=== PATIENT | female | born 1985 | race Caucasian/White ===

== ENCOUNTER 2017-11-01 10:26 | Inpatient (IN) | payer BC ==
[2017-11-01] MEDS ORDERED: IBUPROFEN 600 MG TAB PO PRN (11:12)
[2017-11-01] MEDS ORDERED: LR 1,000 ML IV PRN (11:12)
[2017-11-01] MEDS ORDERED: TERBUTALINE SULFATE 1 MG/ML VIAL IV PRN (11:12)
[2017-11-01] MEDS ORDERED: MISOPROSTOL 200 MCG TAB PR PRN (11:12)
[2017-11-01] MEDS ORDERED: OLIVE OIL 118 ML BTL MISC PRN (11:12)
[2017-11-01] MEDS ORDERED: OXYTOCIN/RINGERS LACTATE 1,000 ML IV PRN (11:12)
[2017-11-01] MEDS ORDERED: EPSOM SALT 454 GM TP PRN (11:12)
[2017-11-01] MEDS ORDERED: LIDOCAINE 1% 300 MG/30 ML SDV SC PRN (11:12)
[2017-11-01 11:41] LABS: PLATELET COUNT 184 10^3/uL (150-400)
[2017-11-01] MEDS ORDERED: BUPIVACAINE 0.25% 30 ML SDV ONE (11:56)
[2017-11-01] MEDS ORDERED: PHENYLEPHRINE HCL 100 MCG/ML SYR ONE (11:56)
[2017-11-01] MEDS ORDERED: fentaNYL 100 MCG/2 ML INJ ONE (11:57)
[2017-11-01] MEDS ORDERED: NARCOTIC DRIP BAG-TOTAL ALL TYPES IV PRN (11:59)
[2017-11-01] MEDS: fentaNYL 200 MCG, BUPIVACAINE 0.5% 20 ML in NS 100 ML EP SCH ×2 (12:17→19:55)
[2017-11-01] MEDS ORDERED: PHENYLEPHRINE HCL 100 MCG/ML SYR IVP PRN (12:52)
[2017-11-01] MEDS ORDERED: ONDANSETRON 4 MG/2 ML VIAL IVP PRN (12:52)
--- NOTE | 2017-11-01 12:57 | PREANESOB ---
Obstetric Pre-Anesthesia Info - General Info Proposed Procedure: Labor and delivery. : 1 Para: 0 DEE: 10/27/17 Gestational Age: 40 week(s) and 5 day(s) - Info Status: Postmature Monitors: External FHR Baseline (bpm): 130 FHR Pattern: Reassuring - Labor Status Cervical Dilation per last OB SVE: 6 Indications for Labor Analgesia: Pain Control Labor Epidural: Proposed Anesthesia ROS: Prior general anesthesia. Allergies/Adverse Reactions: Allergy/AdvReac Type Severity Reaction Status Date / Time No Known Allergies Allergy Unverified 11/01/17 10:45 Home Medications: Medication Instructions Recorded Vit 8-Phdj-Jadyi-Dha 1 each PO DAILY 11/01/17 [Elite Ob Dha Softgel] Visit Medications: Generic Name Dose Route Start Last Admin Trade Name Freq PRN Reason Stop Dose Admin Lactated Ringer's 1,000 mls @ 0 mls/hr 11/01/17 11:12 11/01/17 12:17 Lr IV 11/02/17 11:11 1,000 mls PRN PRN Administration SEE PROTOCOL CONDITIONS Protocol Per Protocol Oxytocin/Lactated Ringer's 1,000 mls @ 125 mls/hr 11/01/17 11:12 Pitocin 20 Units/Lr (Premix) IV PRN PRN Post bleeding Fentanyl 200 mcg/ Bupivacaine 100 mls @ mls/hr 11/01/17 11:59 11/01/17 12:17 HCl 20 ml/ Sodium Chloride EP 11/11/17 11:58 100 mls CONT CHLOE Administration As Directed Ibuprofen 600 mg 11/01/17 11:12 Motrin PO ONCE PRN post , pain Lidocaine HCl 300 mg 11/01/17 11:12 Lidocaine Hcl 1% SC 04/30/18 11:11 ONCE PRN episiotomy Magnesium Sulfate 454 gm 11/01/17 11:12 Epsom Salt TP 04/30/18 11:11 Q1H PRN perineal discomfort Miscellaneous Medication 1 ea 11/01/17 11:59 Narcotic Drip-Total All Types IV 04/30/18 11:58 PRN PRN Pyxis removal Misoprostol 800 - 1,000 mcg 11/01/17 11:12 Cytotec [place] ONCE PRN Vaginal Atony/Bleeding [place] Oil 118 ml 11/01/17 11:12 Sweet Oil MISC 04/30/18 11:11 ONCE PRN perineal massage Terbutaline Sulfate 0.25 mg 11/01/17 11:12 Brethine IV 04/30/18 11:11 ONCE PRN Tachysystole Discontinued Medications Generic Name Dose Route Start Last Admin Trade Name Rob PRN Reason Stop Dose Admin Bupivacaine HCl Confirm 11/01/17 11:56 Sensorcaine 0.25% Sdv Administered 11/01/17 11:57 Dose 30 ml .ROUTE .STK-MED ONE Fentanyl Confirm 11/01/17 11:57 Sublimaze Administered 11/01/17 11:58 Dose 100 mcg .ROUTE .STK-MED ONE Phenylephrine HCl Confirm 11/01/17 11:56 Neosynephrine Administered 11/01/17 11:57 Dose 1,000 mcg .ROUTE .STK-MED ONE - Anesthesia History Response to Local Anesthetics: Normal Anesthesia & Operative History: No Prior Problems Family Anesthesia History: Negative - Social History Substance Use/Abuse: Denies - Vital Signs Blood Pressure: 132/85 Heart Rate: 71 Respiratory Rate: 24 Height/Weight (Nursing): Height 166.37 cm Weight 96.162 kg - Focused Exam Neck exam: FROM Mallampati Score: Class 1 Mouth exam: normal dental/mouth exam Pulmonary: no respiratory distress Cardiovascular: regular rate and rhythym Labs: 11/01/17 11:30 Patient ABO/Rh O POSITIVE 11/01/17 11:30 - Plan Anesthetic Plan: CSE Consent Signed and on Chart: Yes Patient/Guardian Understands and Agrees to Plan: Yes Urgent/Emergent Case: Sean gloria completed preop but documented later for safe timely pt care
--- NOTE | 2017-11-01 12:57 | POSTANESTH ---
Post Anesthetic Evaluation Cardiovascular Status: Normal, Stable Respiratory Status: Normal, Stable, Similar to Pre-op Cond. Level of Consciousness/Mental Status: Can Participate in Eval, Alert and Oriented Pain Control: Adequate, Prn Tx Ordered Nausea/Vomiting Control: Adequate, Prn Tx Ordered Complications Possibly Related to Anesthesia: None Noted
[2017-11-01] MEDS ORDERED: fentaNYL 2MCG/ML/BUP 0.1% RTU 100 ML EP SCH (13:00)
[2017-11-01] MEDS ORDERED: LR 500 ML IV SCH (13:00)
--- NOTE | 2017-11-01 15:01 | GHP ---
[f rep st] HISTORY AND PHYSICAL DATE OF ADMISSION: 11/01/2017 ADMITTING DIAGNOSES: 1. Intrauterine at 40 weeks and 5 days. 2. Active labor. HISTORY OF PRESENT ILLNESS: The patient is a 32-year-old, 1, para 0, at 40 weeks and 5 days, with an estimated due date 10/27/2017, by last menstrual period, 01/20/2017, and consistent with ultrasound at 8 weeks 5 days. Patient presents to Labor and Delivery with complaints of contractions that have progressively gotten worse throughout the morning, and has noticed brownish discharge ever since being checked 2 days ago. She states good movement noted. She denies any bleeding. Patient desires an epidural at this time. Patient has good care and presented with the midwives in the first trimester at 8 weeks. is pretty much uncomplicated. Patient admits to marijuana use prior to the and has a negative UDS in this . She does have a history of migraines with aura, but did not have any migraines during this . Rubella is nonimmune. The patient did receive Tdap in the . GBS culture is negative. PAST OBSTETRICAL HISTORY: Patient is a primipara. This is her first . PAST GYNECOLOGICAL HISTORY: Age of menarche is 12. Cycles are regular. Denies a history of any abnormal Pap smears or any exposure to STDs. CURRENT MEDICATIONS: Hnxr-ahe-inmtzcp vitamins, DHA. ALLERGIES: No known drug allergies. PAST MEDICAL HISTORY: Remarkable for migraine with aura. Patient also has the BRAF mutation with history of melanoma. PAST SURGICAL HISTORY: Unremarkable. SOCIAL HISTORY: She is and lives with her . 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 Admits to marijuana use in the past, as well as occasional tobacco use, none during this . Denies any illicit drug use or alcohol use. FAMILY HISTORY: Father secondary to colon cancer; had BRAF mutation. REVIEW OF SYSTEMS: Ten-point review of systems negative. Pertinent positives noted in HPI. LABS: First trimester H and H are 14.3 and 40.4, platelets 314. Blood type O positive. Antibody negative. RPR nonreactive. Rubella nonimmune. Hepatitis B surface antigen negative. HIV negative. Standard panel negative, 04/11/2017. Pap test, 08/17/2016, revealed ASCUS, negative HPV. Innatal screen negative 04/11/2017. H and H 3rd trimester 12.9 and 37.5. One-hour Glucola 112. GBS culture is negative. ADMISSION PHYSICAL EXAM: VITAL SIGNS: Stable. Patient is afebrile, 36.9, heart rate 75, respirations 24, blood pressure 137/82. GENERAL: Well-nourished , well-developed female, alert and oriented x3. Moderate distress secondary to pain with contractions. SKIN: Warm, dry. No rash. NEURO: Grossly intact. CARDIOVASCULAR: Regular rate and rhythm. LUNGS: Clear to auscultation bilaterally. ABDOMEN: Gravid, soft, nontender on exam. PELVIC: Patient examines by RN and noted to be 6 cm, 100%, -2, intact. EXTREMITIES: Normal to inspection without calf tenderness or edema. On the monitor, heart tones: Category 1 strip with a baseline of 130 beats per minute. Positive accelerations. No decelerations. On toco, the patient is madhuri every 2-3 minutes. ASSESSMENT/PLAN: Patient is a 32-year-old, 1, para 0, at 40 weeks and 5 days who presents to Labor and Delivery in active labor. 1. Admit to Labor and Delivery for expectant management. 2. Group B Streptococcus is negative. No prophylactic antibiotics needed. 3. Patient desires an epidural at this time 4. Elevated BPs likely secondary to pain; pt is asymptomatic. Will continue to monitor closely. 5. Anticipate spontaneous vaginal delivery. /[id number]/MODL MTDD
[2017-11-01] MEDS ORDERED: AMMONIA AROMATIC 1 EACH AMP IH ONE (15:02)
[2017-11-01] MEDS ORDERED: LIDOCAINE 1% 300 MG/30 ML SDV ONE (15:02)
[2017-11-01] MEDS ORDERED: OLIVE OIL 118 ML BTL ONE (15:02)
[2017-11-01] MEDS ORDERED: OXYTOCIN 10 UNIT/ML VIAL ONE (15:03)
[2017-11-01] MEDS ORDERED: MISOPROSTOL 200 MCG TAB ONE (15:03)
--- NOTE | 2017-11-01 16:17 | OBPROG ---
Labor Progress Note Assessment/Plan: Assessment: Pt is 32 y/o @ 40 5/7 wks in active labor Plan: Continue expectant management Pt is s/p epidural and requesting and exam AROM - meconium stained fluid; [employer] notified Category 1 strip noted Anticipate 11/01/17 16:13 Subjective/Intrapartum Course: 11/01/17 16:15 Pt is comfortable, s/p epidural. Objective: 11/01/17 11:30 Patient ABO/Rh O POSITIVE 11/01/17 11:30 Temp Pulse Resp BP Pulse Ox 71 24 H 132/85 H 11/01/17 12:57 11/01/17 12:57 11/01/17 12:57 - SVE Dilation (cm): 8 Effacement (%): 100 Station: 0 Membranes: AROM, SROM Amniotic Fluid Color: Meconium Stained - Contraction Pattern Assessment Current Contraction Pattern: Regular (q2-3 min) - FHR Assessment Hernandez FHR (bpm): 140 FHR Pattern Variability: Moderate FHR Category: 1 - Procedures Non-surgical Procedures: Amniotomy - AP Antepartum Course: 11/01/17 16:16 IUP @ 40 5/7 weeks, a pt of the midwives, who presents in active labor; GBS negative. Oxytocin Orders Assessment - Pre-Induction/Augmentation Assessment Gestational Age: 40 week(s) and 5 day(s) ICD10 Worksheet Patient Problems: Problems Problem Status Onset Meconium stained amniotic fluid, delivered, current hospitalization Acute Normal labor Acute - ICD10 Problem Qualifiers (1) Normal labor (2) Meconium stained amniotic fluid, delivered, current hospitalization
[2017-11-01] MEDS ORDERED: LR 500 ML IV PRN (19:45)
[2017-11-01] MEDS ORDERED: OXYTOCIN/RINGERS LACTATE 500 ML IV SCH (20:00)
[2017-11-01] MEDS ORDERED: SILVER NITRATE APPLICATOR 1 APPL TP ONE ×2 (21:19→21:21)
[2017-11-01] MEDS ORDERED: HYDROCORTISONE 0.5% CREAM TP PRN (22:40)
[2017-11-01] MEDS ORDERED: SIMETHICONE 80 MG TAB CHEW PO PRN (22:40)
--- NOTE | 2017-11-01 22:47 | OBDEL ---
Info Type: Vaginal Presentation at Delivery: Vertex L&D Analgesia/Anesthesia Type: Epidural GBS+: No Intrapartum Medications: Generic Name Dose Route Start Last Admin Trade Name Freq PRN Reason Stop Dose Admin Lactated Ringer's 1,000 mls @ 0 mls/hr 11/01/17 11:12 11/01/17 12:17 Lr IV 11/02/17 11:11 1,000 mls PRN PRN Administration SEE PROTOCOL CONDITIONS Protocol Per Protocol Fentanyl 200 mcg/ Bupivacaine 100 mls @ mls/hr 11/01/17 11:59 11/01/17 12:17 HCl 20 ml/ Sodium Chloride EP 11/11/17 11:58 100 mls CONT CHLOE Administration As Directed Oxytocin/Lactated Ringer's 500 mls @ 0 mls/hr 11/01/17 20:00 11/01/17 19:57 Pitocin 30 Units/Lr (Premix) IV 04/30/18 19:59 500 mls CONT CHLOE Administration Protocol Per Protocol Discontinued Medications Generic Name Dose Route Start Last Admin Trade Name Freq PRN Reason Stop Dose Admin Ibuprofen 600 mg 11/01/17 11:12 11/01/17 22:01 Motrin PO 600 mg ONCE PRN Administration post , pain - Hospital Course Intrapartum: 11/01/17 16:15 Pt is comfortable, s/p epidural. Indications for Delivery: Spontaneous Labor Vaginal Delivery - Delivery Provider Delivery Physician/CNM: Melody Selby - Labor and Delivery Onset of Contractions Date: 11/01/17 Onset of Contractions Time: 05:00 Onset of Contractions Type: Spontaneous Rupture of Membranes Date: 11/01/17 Rupture of Membranes Time: 13:45 Rupture of Membranes Type: Artificial Amniotic Fluid Color: Meconium Stained Dilation Complete Date: 11/01/17 Dilation Complete Time: 17:50 Placenta Delivery Date: 11/01/17 Placenta Delivery Time: 20:42 Total Hours of Labor: 15 Non-surgical Procedures: Amniotomy Laceration: 2nd Degree, Other (Specify) (Bilateral vaginal wall; R periurethral tear) Repair: 3-0, Vicryl, Other (Specify) (Periurethral tear noted to be bleeding and silver nitrate not effective so a figure of eight stitch of 3-0 Vicryl was placed; b/l vaginal lacs each repaired with running locking stitch of 3-0 Vicryl. Hemostasis noted. There was noted to be a small hematoma on left side of perineum near anus that did not change in size throughout the whole repair. A rectal exam was performed and intact with no suture noted.) Vaginal Sponge Count Correct: Yes Vaginal Needle Count Correct: Yes Vaginal Sweep Performed: Yes EBL: 500 cc Delivery Events: Nuchal Cord (x1-tight and cut on perineum) Delivery Comment: Uncomplicated Cord Gases: Cord Gases Cord Blood PCO2 35.6 mmHg (37-60) L 11/01/17 20:38 Cord Base Excess -5.1 mEq/L (-13.6--3.2) 11/01/17 20:38 Cord ABG pH 7.35 (7.10-7.37) 11/01/17 20:38 Cord VBG pH 7.30 (7.20-7.42) 11/01/17 20:38 Operative Report - Delivery Cord Gases: Cord Gases Cord Blood PCO2 35.6 mmHg (37-60) L 11/01/17 20:38 Cord Base Excess -5.1 mEq/L (-13.6--3.2) 11/01/17 20:38 Cord ABG pH 7.35 (7.10-7.37) 11/01/17 20:38 Cord VBG pH 7.30 (7.20-7.42) 11/01/17 20:38 Data DEE: 10/27/17 Gestational Age: 40 week(s) and 5 day(s) Hernandez Delivery Date: 11/01/17 Delivery Time: :38 Sex of : Female Score (1 Min): 8 Score (5 Min): 9 ICD10 Worksheet Patient Problems: Problems Problem Status Onset Meconium stained amniotic fluid, delivered, current hospitalization Acute Normal labor Acute (spontaneous vaginal delivery) Acute - ICD10 Problem Qualifiers (1) Normal labor (2) Meconium stained amniotic fluid, delivered, current hospitalization (3) (spontaneous vaginal delivery)
[2017-11-02] MEDS ORDERED: AMMONIA AROMATIC 1 EACH AMP IH ONE (00:49)
[2017-11-02] MEDS ORDERED: MEASLES,MUMPS&RUBELLA VACC/PF 0.5 ML VIAL SC ONE ×2 (01:22→18:00)
[2017-11-02] MEDS: ACETAMINOPHEN 325 MG TAB PO SCH ×4 (01:30→19:21)
[2017-11-02] MEDS: IBUPROFEN 600 MG TAB PO SCH ×3 (05:24→19:21)
--- NOTE | 2017-11-02 11:32 | SOAPPROG ---
SOAP Progress Note Assessment/Plan: went to see pt but she was resting. will attempt PP visit in approx 2-4 hours. spoke with pts mother, she will let Liliam know that I will come back to see her. Objective: Vital Signs Temp Pulse Resp BP Pulse Ox 36.5 C 90 18 103/64 96 11/02/17 05:05 11/02/17 05:05 11/02/17 05:05 11/02/17 05:05 11/02/17 05:05 Laboratory Results 11/01/17 11:30 11/01/17 11/02/17 11/03/17 05:59 05:59 05:59 Output Total 501 Balance -501 ICD10 Worksheet Patient Problems: Problems Problem Status Onset Meconium stained amniotic fluid, delivered, current hospitalization Acute Normal labor Acute (spontaneous vaginal delivery) Acute
[2017-11-02] MEDS: DOCUSATE SODIUM 100 MG CAP PO PRN (12:51)
[2017-11-02] MEDS ORDERED: SUCROSE 1 EA UDL ONE (20:58)
[2017-11-03] MEDS: ACETAMINOPHEN 325 MG TAB PO SCH ×2 (01:12→06:50)
[2017-11-03] MEDS: IBUPROFEN 600 MG TAB PO SCH ×3 (01:12→13:43)
--- NOTE | 2017-11-03 03:46 | OBPP ---
Progress Note Assessment/Plan: Assessment: [id number] s/p PPD#1 Plan: Routine PP Care cont / support PRN rest/ambulate anticipate d/c home tomorrow 11/03/17 03:49 Subjective/ Course: 11/03/17 03:48 Pt doing well, denies any pain or heavy bleeding. She has slept couple hours since delivery. She is ambulating and voiding without difficulty. Objective: 11/01/17 11:30 Patient ABO/Rh O POSITIVE 11/01/17 11:30 Temp Pulse Resp BP Pulse Ox 36.7 C 130 H 18 126/79 H 97 11/02/17 20:00 11/02/17 20:00 11/02/17 20:00 11/02/17 20:00 11/02/17 20:00 Uterine Position/Fundal Height: Umbilicus -1, Midline Uterine Tone: Firm Physical Exam - Physical Exam General Appearance: WD/WN, alert, no apparent distress Neck: supple Respiratory: normal breath sounds Cardiac/Chest: regular rate, rhythm Abdomen: non-tender, soft Skin: normal color, warm/dry Neuro/Psych: alert, normal mood/affect, oriented x 3
[2017-11-03] MEDS: DOCUSATE SODIUM 100 MG CAP PO PRN (07:53)
--- NOTE | 2017-11-03 11:49 | OBPP ---
Progress Note Assessment/Plan: Assessment: 32 ppd#2 s/p uncomplicated post course breast feeding nipple pain rubella non immune Plan: routine post care and discharge instructions apno nipple cream mmr vaccine 11/03/17 11:42 Subjective/ Course: 11/03/17 03:48 Pt doing well, denies any pain or heavy bleeding. She has slept couple hours since delivery. She is ambulating and voiding without difficulty. 11/03/17 11:49 patient is doing well. pain is well controlled. having nipple tenderness and pain. will call in apno. breast feeding is going well. denies headache and changes in vision. ambulating. voiding without difficulty. discussed edema and discharge precautions. normal lochia. Objective: 11/01/17 11:30 Patient ABO/Rh O POSITIVE 11/01/17 11:30 Temp Pulse Resp BP Pulse Ox 36.7 C 130 H 18 126/79 H 97 11/02/17 20:00 11/02/17 20:00 11/02/17 20:00 11/02/17 20:00 11/02/17 20:00 Uterine Position/Fundal Height: Umbilicus -2 Physical Exam - Physical Exam Neck: non-tender, full range of motion, supple Respiratory: chest non-tender, lungs clear, normal breath sounds Cardiac/Chest: normal peripheral pulses, regular rate, rhythm Abdomen: normal bowel sounds, non-tender Extremities: normal range of motion, non-tender, normal inspection, normal capillary refill, pedal edema Skin: normal color, warm/dry Neuro/Psych: no motor/sensory deficits, alert, normal mood/affect, oriented x 3
--- NOTE | 2017-11-03 11:53 | OBGCSDC ---
General Delivery Information - General Info : 1 Para: 1 Abortions: 0 Type: Vaginal L&D Analgesia/Anesthesia Type: Epidural Admission Date: 11/01/17 Labs: Patient ABO/Rh O POSITIVE 11/01/17 11:30 Hct 40.2 % (38.0-47.0) 11/01/17 11:30 - Hospital Course Antepartum: 11/01/17 16:16 IUP @ 40 5/7 weeks, a pt of the midwives, who presents in active labor; GBS negative. Intrapartum: 11/01/17 16:15 Pt is comfortable, s/p epidural. : 11/03/17 03:48 Pt doing well, denies any pain or heavy bleeding. She has slept couple hours since delivery. She is ambulating and voiding without difficulty. 11/03/17 11:49 patient is doing well. pain is well controlled. having nipple tenderness and pain. will call in apno. breast feeding is going well. denies headache and changes in vision. ambulating. voiding without difficulty. discussed edema and discharge precautions. normal lochia. Vaginal - Delivery Provider Delivery Physician/CNM: Melody Selby - Diagnosis Labor: Spontaneous Rupture of Membranes Type: Artificial Amniotic Fluid Color: Meconium Stained Laceration: 2nd Degree, Other (Specify) (Bilateral vaginal wall; R periurethral tear) Repair: 3-0, Vicryl, Other (Specify) (Periurethral tear noted to be bleeding and silver nitrate not effective so a figure of eight stitch of 3-0 Vicryl was placed; b/l vaginal lacs each repaired with running locking stitch of 3-0 Vicryl. Hemostasis noted. There was noted to be a small hematoma on left side of perineum near anus that did not change in size throughout the whole repair. A rectal exam was performed and intact with no suture noted.) Delivery Events: Nuchal Cord (x1-tight and cut on perineum) - Procedures Non-surgical Procedures: Amniotomy - Delivery Non-surgical Procedures: Amniotomy EBL: 500 cc [place] Data DEE: 10/27/17 Gestational Age: 41 week(s) and 0 day(s) Hernandez Delivery Date: 11/01/17 Delivery Time: 20:38 Sex of : Female Weight (gm): 3974 g Score (1 Min): 8 Score (5 Min): 9 Discharge Information - Discharge Information Instruction/Follow Up: Four Weeks (post mood check), Six Weeks (post visit)
[2017-11-03 16:05] VITALS: BP 121/75
== END 2017-11-03 14:40 | disposition home or self-care (01) | DRG 775 ==
LOC: FLD 10:26 → FOB 11-02 01:38
PROVIDERS: ADMIT Obstetrics & Gynecology; ATTEND Obstetrics & Gynecology
PROC: 10E0XZZ Delivery of Products of Conception, External Approach (ICD-10-PCS; principal; 2017-11-01)
PROC: 10907ZC Drainage of Amniotic Fluid, Therapeutic from Products of Conception, Via Natural or Artificial Opening (ICD-10-PCS; principal; 2017-11-01)
PROC: 0KQM0ZZ Repair Perineum Muscle, Open Approach (ICD-10-PCS; principal; 2017-11-01)
DX: O70.1 Second degree perineal laceration during delivery (principal); O77.0 Labor and delivery complicated by meconium in amniotic fluid; O69.1XX0 Labor and delivery complicated by cord around neck, with compression, not applicable or unspecified; Z23 Encounter for immunization; Z3A.40 40 weeks gestation of pregnancy; Z37.0 Single live birth
CPT/HCPCS: J2370; J2590; J3010

== ENCOUNTER → 2017-11-21 | Outpatient (CLI) | payer BC | LOC: FLACT 13:02 | PROVIDERS: ATTEND Advanced Practice Midwife | DX: O92.13 Cracked nipple associated with lactation (principal) | CPT/HCPCS: G0463 ==

== ENCOUNTER → 2017-12-19 | Outpatient (CLI) | payer BC | LOC: FLACT 10:12 | PROVIDERS: ATTEND Obstetrics & Gynecology | DX: Z39.1 Encounter for care and examination of lactating mother (principal) | CPT/HCPCS: G0463 ==